=== PATIENT | male | born 1990 | race Hispanic/Latino ===

== ENCOUNTER 2018-01-28 18:55 | Emergency (ER) | payer SELFPAY ==
[2018-01-28 18:56] VITALS: BMI 21.5
[2018-01-28 19:08] VITALS: RESP 18; TEMP 97.6
--- NOTE | 2018-01-28 19:18 | ED PDOC ---
Arrival/HPI - General Chief Complaint: Substance Abuse Time Seen by Provider: 01/28/18 19:06 Historian: Patient, Police - History of Present Illness Narrative History of Present Illness (Text): 27 year old male is brought into the emergency department in police custody for DUI. life science technical officer is at bedside. life science technical officer states that they require blood sampling from patient in the emergency department. Patient agrees with blood and urine test. Patient currently denies fevers, chills, weakness/ numbness/ tingling, headache, dizziness, cough, sore throat, chest pain, shortness of breath, dyspena on exertion, abdominal pain, nausea, vomiting, diarrhea, neck/ back pain, urinary/ bowel symptoms, trauma/ injury, or any other complaints. Time/Duration: Prior to Arrival Symptom Onset: Sudden Symptom Course: Unchanged Activities at Onset: Rest, Light Context: Intermediate Designer Past Medical History - Provider Review Nursing Documentation Reviewed: Yes - Infectious Disease Hx of Infectious Diseases: None - Tetanus Immunization Tetanus Immunization: Unknown - Psychiatric Hx Depression: No Hx Emotional Abuse: No Hx Physical Abuse: No Hx Substance Use: Yes - Suicidal Assessment Feels Threatened In Home Enviroment: No Family/Social History - Physician Review Nursing Documentation Reviewed: Yes Family/Social History: No Known Family HX Smoking Status: Unknown If Ever Smoked Hx Alcohol Use: Yes Frequency of alcohol use: Socially Hx Substance Use: Yes Substance used: PCP Hx Substance Use Treatment: No Allergies/Home Meds Allergies/Adverse Reactions: Allergies No Known Allergies Allergy (Verified 01/28/18 18:58) Home Medications: Home Meds Medication Instructions Recorded Confirmed No Known Home Med 05/22/12 01/28/18 Review of Systems - Physician Review All systems were reviewed & negative as marked: Yes - Review of Systems Constitutional: absent: Fevers Respiratory: absent: SOB Physical Exam - Physical Exam Narrative Physical Exam (Text): Constitutional: No acute distress. Head: Normocephalic. Atraumatic. Eyes: PERRL. ENT: Moist mucous membranes. Neck: Supple. Cardiovascular: Regular rate. Chest: No tenderness. Respiratory: Clear to auscultation bilaterally. GI: Soft. Nontender. Nondistended. Back: No CVA tenderness. Musculoskeletal: No tenderness or swelling of extremities. Skin: No rash. Neurologic: Alert, no focal deficit Vital Signs Reviewed: Yes Vital Signs Temp Pulse Resp BP Pulse Ox 01/28/18 18:56 97.6 F 77 18 170/107 H 100 Temperature: Afebrile Blood Pressure: Hypertensive Pulse: Regular Respiratory Rate: Normal Appearance: Positive for: Well-Appearing, Non-Toxic, Comfortable Pain Distress: None Mental Status: Positive for: Alert and Oriented X 3 Medical Decision Making ED Course and Treatment: 01/28/18 19:19 Impression: A 27 year old male is brought into the emergency department under police custody for DUI. Plan: -- Blood sample collected for authorities. -- No other indication for further ED stay. Patient awake, alert, without symptoms. Police officers state patient will be kept in custody and not allowed to leave until sober or safe. - Lab Interpretations I have reviewed the lab results: Yes - Scribe Statement The provider has reviewed the documentation as recorded by the Scribe Sherie Grimaldo Provider Scribe Attestation: All medical record entries made by the Scribe were at my direction and per sonally dictated by me. I have reviewed the chart and agree that the record accurately reflects my personal performance of the history, physical exam, medical decision making, and the department course for this patient. I have also personally directed, reviewed, and agree with the discharge instructions and disposition. Disposition/Present on Arrival - Present on Arrival Any Indicators Present on Arrival: No History of DVT/PE: No History of Uncontrolled Diabetes: No Urinary Catheter: No History of Decub. Ulcer: No History Surgical Site Infection Following: None - Disposition Have Diagnosis and Disposition been Completed?: Yes Diagnosis: Encounter for blood test Disposition: RELEASED IN POLICE CUSTODY Disposition Time: 20:23 Patient Plan: Discharge Condition: STABLE Additional Instructions: River Flores is medically cleared for incarceration. Forms: Register My Info (E[place]ian)
[2018-01-28 20:02] VITALS: BP 156/92; PULSE 68; O2SAT 98
[2018-01-28 20:43] LABS: BARBITURATES, UR NEGATIVE (NEGATIVE); BENZODIAZEPINES, UR NEGATIVE (NEGATIVE); OPIATES, UR NEGATIVE (NEGATIVE); PHENCYCLIDINE, UR POSITIVE (NEGATIVE)
== END 2018-01-28 20:30 ==
LOC: ED 18:55
DX: Z04.89 Encounter for examination and observation for other specified reasons (principal); Z65.3 Problems related to other legal circumstances
CPT/HCPCS: 99283; G0480